=== PATIENT | female | born 1990 | race Hispanic/Latino ===

== ENCOUNTER 2018-09-06 19:45 | Emergency (ER) | payer SELFPAY ==
[2018-09-06] MEDS ORDERED: KETOROLAC 30 MG/ML INJ ONE (20:57)
[2018-09-06] MEDS ORDERED: HYDROCODONE/APAP 7.5/325 MG TAB ONE (20:57)
[2018-09-06 21:19] LABS: Urine Blood TRACE (NEG); Urine Glucose NEGATIVE (NEG); Urine Protein NEGATIVE (NEG); Urine Specific Gravity 1.025 (1.005-1.030)
--- NOTE | 2018-09-06 21:33 | ER ---
Nurse's Notes [facility] Name: Ann Marie Akbar Age: 28 yrs Sex: Female : 1990 Arrival Date: 09/06/2018 Time: 19:49 Bed 6 Private MD: Diagnosis: Low back pain;Muscle spasm of back;Sciatica, right side Presentation: 09/06 19:51 Presenting complaint: Patient states: Low back pain that shoots down right leg since aj 1200 today. Care prior to arrival: None. 19:51 Method Of Arrival: Ambulatory 19:51 Acuity: ALEX 4 aj 20:43 Transition of care: patient was not received from another setting of care. Onset of ak1 symptoms is unknown. Risk Assessment: Do you want to hurt yourself or someone else? Patient reports no desire to harm self or others. Initial Sepsis Screen: Does the patient meet any 2 criteria? HR > 90 bpm. Does the patient have a suspected source of infection? No. Patient's initial sepsis screen is negative. Triage Assessment: 19:51 General: Appears distressed, uncomfortable, Behavior is anxious, crying. Pain: aj Complains of pain in coccyx, right lower back, right gluteus sloane and right gluteal fold. Neuro: Level of Consciousness is awake, alert, obeys commands, Oriented to person, place, time, situation, Appropriate for age. Respiratory: Airway is patent Respiratory effort is even, unlabored, Respiratory pattern is regular, symmetrical. Derm: Skin is intact, is healthy with good turgor, Skin is pink, warm \\T\\ dry. normal. Musculoskeletal: Reports pain in coccyx, right lower back, right gluteus sloane and right gluteal fold. 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 - Social history:: Smoking status: unknown. - Ebola Screening: : No symptoms or risks identified at this time. Screenin:42 Abuse screen: Denies threats or abuse. Denies injuries from another. Nutritional ak1 screening: No deficits noted. Tuberculosis screening: No symptoms or risk factors identified. Fall Risk Gait- Weak (10 pts.). Assessment: 20:41 General: Appears in no apparent distress. uncomfortable, Behavior is calm, cooperative. ak1 Pain: Complains of pain in buttocks and right gluteal fold and right gluteus sloane and right lower back and coccyx. Neuro: No deficits noted. Cardiovascular: No deficits noted. Respiratory: No deficits noted. GI: No signs and/or symptoms were reported involving the gastrointestinal system. : No signs and/or symptoms were reported regarding the genitourinary system. EENT: No signs and/or symptoms were reported regarding the EENT system. Derm: No signs and/or symptoms reported regarding the dermatologic system. Musculoskeletal: Range of motion: pt stated she can not ambulated due to pain down right leg. 21:39 General: Appears in no apparent distress. comfortable, Behavior is calm, cooperative, ak1 drowsy, quiet. Neuro: No deficits noted. Cardiovascular: No deficits noted. Respiratory: No deficits noted. GI: No signs and/or symptoms were reported involving the gastrointestinal system. : No signs and/or symptoms were reported regarding the genitourinary system. EENT: No signs and/or symptoms were reported regarding the EENT system. Derm: No signs and/or symptoms reported regarding the dermatologic system. Musculoskeletal: Reports decreased pain. pt stated the pain is "better than when I came in". Vital Signs: 19:51 BP 142 / 82; Pulse 111; Resp 20; Temp 98.8; Pulse Ox 97% on R/A; Weight 58.06 kg; aj Height 5 ft. 2 in. (157.48 cm); 21:38 BP 94 / 52; Pulse 55; Resp 14; Temp 98.3(O); Pulse Ox 100% on R/A; Pain 6/10; ak1 19:51 Body Mass Index 23.41 (58.06 kg, 157.48 cm) aj ED Course: 19:49 Patient arrived in ED. es 19:51 Triage completed. aj 19:51 Arm band placed on left wrist. Patient placed in an exam room. aj 19:56 Pete Laboy PA is PHCP. jr8 19:56 Ronaldo Ulrich MD is Attending Physician. jr8 20:20 Glory Anderson, RN is Primary Nurse. ak1 20:43 Patient has correct armband on for positive identification. Bed in low position. Call ak1 light in reach. Side rails up X 1. Adult w/ patient. Pulse ox on. NIBP on. 21:40 No provider procedures requiring assistance completed. Patient did not have IV access ak1 during this emergency room visit. Administered Medications: 20:44 Drug: TORadol - Ketorolac 15 mg Route: IM; Site: left ventrogluteal; bb 21:30 Follow up: Response: No adverse reaction; Pain is decreased fc 20:45 Drug: [place] (7.5 mg-325 mg) 1 tabs Route: PO; bb 21:30 Follow up: Response: No adverse reaction; Pain is decreased fc Outcome: 21:33 Discharge ordered by . gennaro 21:40 Discharged to home via wheelchair, with family. ak1 21:40 Discharge instructions given to patient, family, Instructed on discharge instructions, follow up and referral plans. no drinking with medication, no driving heavy equipment, medication usage, safe sex practices, control, Demonstrated understanding of instructions, follow-up care, medications, Prescriptions given X 3. 21:58 Condition: good fc 21:58 Patient left the ED. fc Signatures: Jessy Barnhart, RN RN Dania Anguiano Felicia RN RN fc Juliana Haynes RN RN bb Pete Laboy PA PA jr8 Glory Anderson RN RN ak1
--- NOTE | 2018-09-06 21:34 | EDPHYS ---
Physician Documentation [facility] Name: Ann Marie Akbar Age: 28 yrs Sex: Female : 1990 Arrival Date: 09/06/2018 Time: 19:49 Bed 6 Private MD: ED Physician Ronaldo Ulrich HPI: 09/06 20:52 This 28 yrs old Female presents to ER via Ambulatory with complaints of Low jr8 Back Pain. 20:52 The patient presents with pain that is acute. The symptoms are located in the low back. jr8 The pain radiates to the right leg. The problem was sustained from going from a sitting to standing position . Onset: The symptoms/episode began/occurred acutely, today. Modifying factors: The patient symptoms are alleviated by nothing, the patient symptoms are aggravated by any movement, bending. Associated signs and symptoms: The patient has no apparent associated signs or symptoms. Severity of symptoms: At their worst the symptoms were moderate, in the emergency department the symptoms are unchanged. The patient has experienced a previous episode. The patient has not recently seen a physician. History of sciatica. Stated that she has had similar pain in past and believes she irritated her back again after standing up . 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 - Social history:: Smoking status: unknown. - Ebola Screening: : No symptoms or risks identified at this time. ROS: 20:52 Eyes: Negative for injury, pain, redness, and discharge, ENT: Negative for injury, jr8 pain, and discharge, Neck: Negative for injury, pain, and swelling, Cardiovascular: Negative for chest pain, palpitations, and edema, Respiratory: Negative for shortness of breath, cough, wheezing, and pleuritic chest pain, Abdomen/GI: Negative for abdominal pain, nausea, vomiting, diarrhea, and constipation, MS/Extremity: Negative for injury and deformity, Skin: Negative for injury, rash, and discoloration, Neuro: Negative for headache, weakness, numbness, tingling, and seizure. 20:52 Back: Positive for pain at rest, pain with movement, radiated pain, of the low back area. Exam: 20:52 Eyes: Pupils equal round and reactive to light, extra-ocular motions intact. Lids and jr8 lashes normal. Conjunctiva and sclera are non-icteric and not injected. Cornea within normal limits. Periorbital areas with no swelling, redness, or edema. ENT: Nares patent. No nasal discharge, no septal abnormalities noted. Tympanic membranes are normal and external auditory canals are clear. Oropharynx with no redness, swelling, or masses, exudates, or evidence of obstruction, uvula midline. Mucous membranes moist. Neck: Trachea midline, no thyromegaly or masses palpated, and no cervical lymphadenopathy. Supple, full range of motion without nuchal rigidity, or vertebral point tenderness. No Meningismus. Cardiovascular: Regular rate and rhythm with a normal S1 and S2. No gallops, murmurs, or rubs. Normal PMI, no JVD. No pulse deficits. Respiratory: Lungs have equal breath sounds bilaterally, clear to auscultation and percussion. No rales, rhonchi or wheezes noted. No increased work of breathing, no retractions or nasal flaring. Abdomen/GI: Soft, non-tender, with normal bowel sounds. No distension or tympany. No guarding or rebound. No evidence of tenderness throughout. Skin: Warm, dry with normal turgor. Normal color with no rashes, no lesions, and no evidence of cellulitis. MS/ Extremity: Pulses equal, no cyanosis. Neurovascular intact. Full, normal range of motion. Neuro: Awake and alert, GCS 15, oriented to person, place, time, and situation. Cranial nerves II-XII grossly intact. Motor strength 5/5 in all extremities. Sensory grossly intact. Cerebellar exam normal. Normal gait. 20:52 Back: pain, that is moderate, of the right low back, ROM is painful, normal spinal alignment noted, CVA tenderness, is absent, muscle spasm, is appreciated in the right mid back and right low back. Vital Signs: 19:51 BP 142 / 82; Pulse 111; Resp 20; Temp 98.8; Pulse Ox 97% on R/A; Weight 58.06 kg; aj Height 5 ft. 2 in. (157.48 cm); 21:38 BP 94 / 52; Pulse 55; Resp 14; Temp 98.3(O); Pulse Ox 100% on R/A; Pain 6/10; ak1 19:51 Body Mass Index 23.41 (58.06 kg, 157.48 cm) aj MDM: 19:57 Patient medically screened. [facility] 21:32 Data reviewed: vital signs, nurses notes, lab test result(s), and as a result, I will jr8 discharge patient. Data interpreted: Pulse oximetry: on room air is 97 %. Interpretation: normal. Counseling: I had a detailed discussion with the patient and/or guardian regarding: the historical points, exam findings, and any diagnostic results supporting the discharge/admit diagnosis, lab results, the need for outpatient follow up, a family practitioner, to return to the emergency department if symptoms worsen or persist or if there are any questions or concerns that arise at home. Response to treatment: the patient's symptoms have markedly improved after treatment. 09/06 21:14 Order name: Urine Dipstick--Ancillary (enter results); Complete Time: 21:32 [facility] 09/06 21:14 Order name: Urine --Ancillary (enter results); Complete Time: 21:32 [facility] 09/06 20:19 Order name: Urine Test (obtain specimen); Complete Time: 20:36 [facility] 09/06 20:19 Order name: Urine Dipstick-Ancillary (obtain specimen); Complete Time: 20:36 [facility] Administered Medications: 20:44 Drug: TORadol - Ketorolac 15 mg Route: IM; Site: left ventrogluteal; bb 21:30 Follow up: Response: No adverse reaction; Pain is decreased fc 20:45 Drug: [place] (7.5 mg-325 mg) 1 tabs Route: PO; bb 21:30 Follow up: Response: No adverse reaction; Pain is decreased fc Disposition: 09/07 08:22 Co-signature as Attending Physician, Ronaldo Ulrich MD I agree with the assessment and jocelynn plan of care. Disposition: 09/06/18 21:33 Discharged to Home. Impression: Low back pain, Muscle spasm of back, Sciatica, right side. - Condition is Stable. - Discharge Instructions: Back Pain, Adult, Sciatica, Back Exercises, [id number], Heat Therapy. - Prescriptions for Ibuprofen 800 mg Oral Tablet - take 1 tablet by ORAL route every 12 hours As needed take with food; 20 tablet. Cyclobenzaprine 10 mg Oral Tablet - take 1 tablet by ORAL route every 8 hours As needed; 30 tablet. Medrol (Ilan) 4 mg Oral Tablets, Dose Pack - take 1 tablet by ORAL route as directed - follow package instructions; 1 packet. - Work release form, Medication Reconciliation Form, Thank You Letter, Antibiotic Education, Prescription Opioid Use form. - Follow up: Private Physician; When: 2 - 3 days; Reason: Recheck today's complaints, Continuance of care, Re-evaluation by your physician. - Problem is new. - Symptoms have improved. Signatures: Dispatcher [employer] EDJessy Veloz, RN RN Ronaldo Franks MD MD cha Chretien, Felicia RN RN Juliana Connor RN RN Pete Bueno PA PA jr8 Glory Anderson RN RN ak1 Corrections: (The following items were deleted from the chart) 09/06 21:58 21:33 09/06/2018 21:33 Discharged to Home. Impression: Low back pain; Muscle spasm of fc back; Sciatica, right side. Condition is Stable. Forms are Medication Reconciliation Form, Thank You Letter, Antibiotic Education, Prescription Opioid Use. Follow up: Private Physician; When: 2 - 3 days; Reason: Recheck today's complaints, Continuance of care, Re-evaluation by your physician. Problem is new. Symptoms have improved. jr8
== END 2018-09-06 21:58 | disposition home or self-care (01) ==
LOC: ER 19:45
DX: M62.830 Muscle spasm of back (principal); M54.31 Sciatica, right side
CPT/HCPCS: 81003; 81025; 96372; 99283